=== PATIENT | female | born 1990 | race Caucasian/White ===

== ENCOUNTER 2023-07-13 16:11 | Outpatient (CLI) | payer BC, MEDICAID, SELFPAY ==
[2023-07-13] VITALS (12 sets, daily range): BP systolic 101–109; BP diastolic 66–73; PULSE 68–81; RESP 17; O2SAT 92–99; BMI 28.1
== END 2023-07-13 16:55 | disposition home or self-care (01) ==
LOC: OPOB 16:13 → OBGYN 16:15
PROVIDERS: Visit Provider Family Medicine
DX: O26.899 Other specified pregnancy related conditions, unspecified trimester (principal); Z3A.00 Weeks of gestation of pregnancy not specified
CPT/HCPCS: 59025; 99211

== ENCOUNTER 2023-09-12 12:32 | Inpatient (IN) | payer BC, MEDICAID, SELFPAY ==
[2023-09-11] VITALS (10 sets, daily range): BP systolic 108–118; BP diastolic 71–79; PULSE 65–83; RESP 16; TEMP 35.8–35.9; BMI 31.8
[2023-09-11 20:46] LABS: Basophils % 0.3 %; Eosinophils % 0.5 %; Hematocrit 33.1 % (36-47); Lymphocytes # 1.9 10^3/uL (0.8-4.8); Lymphocytes % 23.8 %; Mean Corpuscular HGB Conc 33.2 g/dL (30-55); Mean Corpuscular Hemoglobin 28.9 pg (27-33); Mean Corpuscular Volume 86.9 fl (85-98); Mean Platelet Volume 10.5 fL (7.4-10.4); Monocytes # 0.5 10^3/uL (0.2-0.9); Monocytes % 6.2 %; Neutrophils # 5.42 10^3/uL (1.8-7.7); Neutrophils % 68.4 %; Nucleated Red Blood Cells % 0 %; Platelet Count 229 10^3/cmm (157-399); Red Blood Count 3.81 10^6/uL (3.85-5.65); Red Cell Distribution Width 13.4 % (12.1-15.1); White Blood Count 7.91 10^3/uL (3.29-11.43)
[2023-09-11] MEDS: miSOPROStol 100 mcg tablet 25 MCG VAGINAL (21:33)
[2023-09-12] VITALS (63 sets, daily range): BP systolic 101–139; BP diastolic 57–92; PULSE 59–103; RESP 14–16; TEMP 35.7–36.7; O2SAT 96–99
[2023-09-12] MEDS: miSOPROStol 100 mcg tablet 25 MCG VAGINAL (01:59)
[2023-09-12] MEDS: lactated ringers 1,000 ML 999 ML IV (12:55)
[2023-09-12] MEDS: ROPivacaine syringe 100 MG/50 ML SYRINGE 10 MG EPIDURAL ×2 (14:00→17:52)
[2023-09-12] MEDS: dextrose 5%-lactated ringers 1,000 ML 125 ML IV (14:26)
--- NOTE | 2023-09-12 14:50 | P.ANESASSM_ITS ---
Pre-Anesthetic Assessment Height/Weight: Height 1.7 m Weight 92.079 kg Temp Pulse Resp BP Pulse Ox O2 Del Method 96.4 F L 74 16 114/81 96 Room Air 09/12/23 12:34 09/12/23 14:42 09/11/23 20:16 09/12/23 14:42 09/12/23 14:19 09/11/23 21:38 Familial anesthetic complications: none Was Beta Kamila taken within 24 hours: N/A Was Clonidine taken within 24 hours: N/A Social No alcohol and No tobacco Exam alert, oriented x 3, clear to auscultation bilaterally and regular rate & rhythm Airway Submandibular: within normal limits Cervical ROM: within normal limits Mallampati: Class II Dentition: full Anesthetic Plan ASA status: 2 Anesthesia: Regional (specify below) (Labor epidural) Medications/Allergies Home Medications Medication Instructions Recorded Confirmed Last Taken Type escitalopram oxalate 10 mg tablet 10 mg PO DAILY 09/11/23 09/11/23 09/10/23 History Allergies Allergy/AdvReac Type Severity Reaction Status Date / Time No Known Allergies Allergy Verified 09/11/23 20:47 Current Medications Generic Name Dose Route Start Last Admin Trade Name Freq PRN Reason Stop Dose Admin Dextrose/Lactated Ringer's 1,000 mls @ 125 mls/hr 09/11/23 20:15 09/12/23 14:26 Dextrose 5%-Lactated Ringers IV 125 mls/hr .Q8H JUANCARLOS Administration Lactated Ringer's 1,000 mls @ 999 mls/hr 09/12/23 12:48 09/12/23 14:27 Lactated Ringers IV Infused .Q1H1M PRN Infusion See label comments Ropivacaine 100 mg in 50 mls @ 10 mls/hr 09/12/23 13:00 09/12/23 14:00 Naropin Syringe EPIDURAL 10 mls/hr .Q5H JUANCARLOS Administration PFS Anesthesia Female Reproductive History : 3 Data Anesthesia 09/11/23 20:33 Short CBC 09/11/23 Range/Units 20:33 WBC 7.91 (3.29-11.43) 10^3/uL Hgb 11.00 L (11.27-16.99) g/dL Hct 33.1 L (36-47) % MCV 86.9 (85-98) fl Plt Count 229 (157-399) 10^3/cmm Neut % (Auto) 68.4 % Neut # (Auto) 5.42 (1.8-7.7) 10^3/uL Blood Bank 09/11/23 20:33 Blood Type O Positive Rho(D) Type Rh positive Antibody Screen Negative Cardiac Studies: 2 No Data to Display Anesthesia Procedures Epidural Time Out Performed: Yes Consents Signed: Procedure Consent Consent: requested by attending/covering physician, from patient, risks and benefits reviewed and patient agrees to proceed Lumbar Level: L3-L4 Epidural position: sitting Epidural procedure: sterile prep of area, 1% lidocaine to numb the area, 18 g needle, neg for paresthesia, test dose given, 1.5% xylocaine 1:200k epi, placed PCEA, no systemic response, sterile dressing applied and 0.2% Ropiavacaine @ mls/hr (10) Additional Comments: SHAHRAM at 6cm, Cath at 11cm, 5mls of 2% lido PF
--- NOTE | 2023-09-12 16:43 | PM.OPHPUD ---
Labor & Delivery H&P Update Date of Procedure: September 12, 2023 Date H&P Performed: 09/08/23 Admission Diagnosis: at 39 weeks 4 days gestation Primary indication for procedure: elective Planned procedure: Induction of labor and delivery
--- NOTE | 2023-09-12 16:45 | P.PN_ITS ---
[employer] Subjective 2 Subjective: Interval history: This is a 32-year-old G3, P1 at 39 weeks 4 days gestation who was admitted last night for elective induction. Her cervix was not favorable so she was started on Cytotec. She received 2 doses of Cytotec. The plan was to then start her on high-dose Pitocin however due to nursing shortage and busyness on the unit this was put off. Her water ended up breaking on its own with clear fluid. She was progressing well on her own. She received an epidural for pain management. I just checked her and she is currently 6 cm 80% effaced and -3 station. She is very comfortable with the epidural Labor: Station: -2 Amniotic Membrane Status: Ruptured Monitor Mode: Palpation Contraction Pattern: Regular Status: Category I Vitals/I&O/Wt Last Vital Signs Temp 96.4 F L 09/12/23 12:34 Pulse 71 09/12/23 16:41 Resp 16 09/11/23 20:16 BP 113/76 09/12/23 16:41 Pulse Ox 96 09/12/23 14:19 O2 Del Method Room Air 09/11/23 21:38 09/12/23 09/12/23 09/12/23 06:59 14:59 22:59 Intake Total 1000 / 1000 Balance 1000 / 1000 Weight last 48 hrs Weight 92.079 kg Physical Exam 2 Narrative: Alert and oriented, sitting up in bed, abdomen nontender Urinary Catheter Management: Coreas: Cath Placed During This Visit: yes Urinary Catheter Date of Insertion: 09/12/23 Urinary Catheter Time of Insertion: 14:54 Data 09/11/23 20:33 A&P Assessment and plan (1) Encounter for induction of labor: Since she is comfortable with her epidural we will start high-dose Pitocin and placed on the peanut ball. Attestations 2 Medical Necessity Statement*: Routine induction of labor and delivery Coding Level of Care Code Acute Code for Chg Fwd Diagnoses Encounter for induction of labor Z34.90
[2023-09-12] MEDS: oxytocin 30 UNIT/500 ML BAG IV (16:53)
--- NOTE | 2023-09-12 19:02 | P.PCNOB_ITS ---
Delivery Note: Date of delivery: September 12, 2023 Procedure: Normal spontaneous vaginal delivery Delivering Physician: Andie Garcia MD Estimated blood loss (mL): 150 Pre-Delivery Course: The patient had routine care at [facility] mother's blood type O+ antibody negative, hepatitis B nonreactive, hepatitis C nonreactive, HIV nonreactive, rubella immune, GC chlamydia negative, RPR nonreactive, UDS negative, Q lukas low risk, she passed her 1 hour glucose tolerance test, she was GBS negative. Delivery: This is a 32-year-old G2 now P2 who was admitted for induction at 39 weeks 4 days gestation. She was first started on Cytotec and then placed on Pitocin. She had spontaneous rupture of membranes with clear fluid. She received an epidural for pain management. She only had to push through 2 contractions and had a normal spontaneous vaginal delivery of a viable male weight 3510 g, 7 pounds 12 ounces, Apgars 8 and 9 over an intact perineum. The infant was suctioned at delivery and placed on the mother's chest. The cord was clamped and cut. There was a first-degree vaginal laceration that was bleeding briskly and was sutured with 3-0 chromic. Otherwise there were no external lacerations. Mother and infant were doing well after delivery. Coding Level of Care Code Acute Code for Chg Fwd
[2023-09-12] MEDS: ibuprofen 800 mg tablet PO (22:49)
[2023-09-12] MEDS: escitalopram 10 mg Tablet PO (22:49)
[2023-09-13 00:45] VITALS: BP 121/78; PULSE 78; RESP 16; TEMP 36.6
[2023-09-13 02:45] VITALS: BP 123/80; PULSE 65; RESP 18
[2023-09-13 04:45] VITALS: BP 133/87; PULSE 60; RESP 18
[2023-09-13] MEDS: ibuprofen 800 mg tablet PO ×2 (08:55→15:37)
[2023-09-13] MEDS: docusate sodium 100 mg Capsule PO (08:55)
[2023-09-13] MEDS: prenatal vitamin Capsule 1 CAP PO (08:56)
[2023-09-13 09:21] LABS: Hematocrit 30.9 % (36-47); Mean Corpuscular HGB Conc 33.3 g/dL (30-55); Mean Corpuscular Hemoglobin 29.3 pg (27-33); Mean Platelet Volume 10.6 fL (7.4-10.4); Platelet Count 187 10^3/cmm (157-399); Red Blood Count 3.51 10^6/uL (3.85-5.65); Red Cell Distribution Width 13.5 % (12.1-15.1); White Blood Count 13.66 10^3/uL (3.29-11.43)
--- NOTE | 2023-09-13 09:29 | ANE.PACU2 ---
Inpatient post-anesthesia follow up: Airway intact: Yes Vital signs: Temperature 97.9 F Pulse Rate 60 Respiratory Rate 18 Blood Pressure 133/87 Pulse Oximetry 96 Oxygen Delivery Me thod Room Air Oxygen Flow Rate Fraction of Inspir ed Oxygen Hydration adequate: Yes Nausea and vomiting: No Pain level: 2 Mental status: Baseline Additional Comments: Anes start 09/12/23 1345 Aens end 09/12/23 [id number]
[2023-09-13 10:00] VITALS: BP 113/69; PULSE 73; TEMP 36.9; O2SAT 97
[2023-09-13 16:25] VITALS: BP 127/78; PULSE 76; O2SAT 97
--- NOTE | 2023-09-13 16:26 | P.DS_ITS ---
Discharge Providers Date of Admission: 09/12/23 12:32 Date of Discharge: September 13, 2023 Attending Provider at Admission: Andie Garcia MD Attending Provider at Discharge: Andie Garcia MD Diagnoses at Discharge Discharge Diagnosis (1) Encounter for induction of labor: Status: Acute Reason for Visit Reason for Visit: IOL Hospital Course Hospital Course This is a 32-year-old G2 now P2 who was admitted for induction at 39 weeks 3 days gestation. She had a normal spontaneous vaginal delivery of a viable male . On day #1 she was ambulating, tolerating a regular diet, had essentially no pain, her blood pressures were controlled, her bleeding was about average. She was comfortable with discharge home. Physical Exam Narrative: Alert and oriented, walking around the room, heart regular rate and rhythm, lungs clear to auscultation bilaterally, abdomen is soft and nontender, fundus is firm and U -2, extremities have no calf tenderness and no edema Urinary Catheter Management: Coreas: Cath Placed During This Visit: yes Reason for Continuing Indwelling Catheter: Acute Urinary Retention or Obstruction Urinary Catheter Date of Insertion: 09/12/23 Urinary Catheter Time of Insertion: 14:54 Discharge Data Studies Completed and Pending Laboratory Results WBC 13.66 10^3/uL (3.29-11.43) H 09/13/23 08:51 RBC 3.51 10^6/uL (3.85-5.65) L 09/13/23 08:51 Hgb 10.30 g/dL (11.27-16.99) L 09/13/23 08:51 Hct 30.9 % (36-47) L 09/13/23 08:51 MCV 88.0 fl (85-98) 09/13/23 08:51 MCH 29.3 pg (27-33) 09/13/23 08:51 MCHC 33.3 g/dL (30-55) 09/13/23 08:51 RDW 13.5 % (12.1-15.1) 09/13/23 08:51 Plt Count 187 10^3/cmm (157-399) 09/13/23 08:51 MPV 10.6 fL (7.4-10.4) H 09/13/23 08:51 Neut % (Auto) 68.4 % 09/11/23 20:33 Lymph % (Auto) 23.8 % 09/11/23 20:33 [place] % (Auto) 6.2 % 09/11/23 20:33 Eos % (Auto) 0.5 % 09/11/23 20:33 Baso % (Auto) 0.3 % 09/11/23 20:33 Neut # (Auto) 5.42 10^3/uL (1.8-7.7) 09/11/23 20:33 Lymph # (Auto) 1.9 10^3/uL (0.8-4.8) 09/11/23 20:33 [place] # (Auto) 0.5 10^3/uL (0.2-0.9) 09/11/23 20:33 Eos # (Auto) 0.0 10^3/uL (0.0-0.8) 09/11/23 20:33 Baso # (Auto) 0.0 10^3/uL (0.0-0.1) 09/11/23 20:33 Nucleated RBC % (auto) 0 % 09/11/23 20:33 Nucleated RBCs # 0.0 /100WBC 09/11/23 20:33 Blood Type O Positive 09/11/23 20:33 Rho(D) Type Rh positive 09/11/23 20:33 Antibody Screen Negative 09/11/23 20:33 Vitals Last Vital Signs Temp 97.9 F 09/13/23 00:45 Pulse 60 09/13/23 04:45 Resp 18 09/13/23 04:45 BP 133/87 09/13/23 04:45 Pulse Ox 96 09/12/23 14:19 O2 Del Method Room Air 09/11/23 21:38 Discharge Plan Discharge Patient Disposition: Home Condition: Stable Prescriptions: Continued escitalopram oxalate 10 mg Tablet 10 mg PO DAILY Discharge Orders: Discharge Order (Routine); Ordered 09/13/23 Ordered By: Andie Garcia Referrals: Andie Garcia MD [Physician] - 1 month Discharge Diet: Usual diet Discharge Activity: Limit activity as instructed Patient Instructions: Opioid Safety Discharge Attestations Time Spent in Discharge Care*: less than 30 min Quality Metrics Clinical Quality Measures [ No reported AMI, CVA or VTE this stay] Coding Level of Care Code Acute Code for Chg Fwd Diagnoses Encounter for induction of labor Z34.90
[2023-09-13 19:50] VITALS: BP 120/77; PULSE 67; RESP 17; TEMP 36.7; O2SAT 97
== END 2023-09-13 20:10 | disposition home or self-care (01) | DRG 807 ==
LOC: OPOB 13:23 → OBGYN 13:23
PROVIDERS: Admitting Provider Family Medicine; Visit Provider Family Medicine
DX: O70.0 First degree perineal laceration during delivery (principal); Z37.0 Single live birth; Z3A.39 39 weeks gestation of pregnancy
CPT/HCPCS: 36415; 51702; 59025; 59409; 85025; 85027; 86850; 86900; 99211; J2590; J2795; J7120; J7121